=== PATIENT | female | born 1955 | race Hispanic/Latino ===

== ENCOUNTER 2024-07-03 09:07 | Observation (INO) | payer MEDICARE, OTHER ==
[2024-07-03] VITALS (9 sets, daily range): BP systolic 141–187; BP diastolic 51–64; PULSE 52–69; RESP 16–18; TEMP 97.5–98.7; O2SAT 98–100
[~2024-07-03] VITALS: Ht 152.4 cm; Wt 59.0 kg
[2024-07-03 10:27] LABS: BASOPHILS # (AUTO) 0.1 (0.0-0.1); BASOPHILS % 1.2 % (0.0-1.0); EOSINOPHILS # (AUTO) 0.1 (0.0-0.4); EOSINOPHILS % 1.2 % (0.0-6.0); LYMPHOCYTES # (AUTO) 1.1 (1.0-3.2); LYMPHOCYTES % 16.8 % (18.0-39.1); MEAN CORPUSCULAR HEMOGLOBIN 33.9 pg (28-32); MEAN CORPUSCULAR VOLUME 109.5 fL (81-99); MONOCYTES # (AUTO) 0.5 (0.2-0.8); MONOCYTES % 7.4 % (4.4-11.3); NEUTROPHILS # (AUTO) 4.8 (2.1-6.9); NEUTROPHILS % 72.3 % (38.7-80.0); RED BLOOD COUNT 1.68 x10e6/uL (3.6-5.1); RED CELL DISTRIBUTION WIDTH 17.4 % (11.7-14.4); WHITE BLOOD COUNT 6.62 x10e3/uL (4.8-10.8)
[2024-07-03 10:39] LABS: ANION GAP 18.5 mmol/L (8-16); CALCIUM 8.5 mg/dL (8.4-10.2); CREATININE, SERUM 6.86 mg/dL (0.57-1.11); HEMOGLOBIN 5.7 g/dL (12.0-16.0); POTASSIUM 3.5 mmol/L (3.5-5.1)
[2024-07-03 10:40] LABS: HEMATOCRIT 18.4 % (34.2-44.1)
[2024-07-03 10:41] LABS: PLATELET COUNT 246 x10e3/uL (140-360)
[2024-07-03] MEDS: SODIUM CHLORIDE 0.9% 250ML 250 ML IV ONE (16:49)
[2024-07-03] MEDS ORDERED: ALBUMIN 25% 12.5GM 0.25 GM/ML BTL IV PRN (18:00)
[2024-07-03] MEDS ORDERED: SODIUM CHLORIDE 0.9% 1000ML 2,000 ML IV PRN (18:00)
[2024-07-03] MEDS ORDERED: LOSARTAN POTASS25 MG PO (18:46)
[2024-07-03] MEDS ORDERED: ATORVASTATIN CA40 MG PO (18:46)
[2024-07-03] MEDS ORDERED: CARVEDILOL25 MG PO (18:46)
[2024-07-03] MEDS ORDERED: ASPIRIN81 MG (18:46)
[2024-07-03] MEDS ORDERED: CALCITRIOL0.25 MCG PO (18:46)
[2024-07-03] MEDS ORDERED: ALLOPURINOL100 MG PO (18:46)
[2024-07-03] MEDS ORDERED: BRILINTA90 MG PO (18:46)
[2024-07-03] MEDS ORDERED: SEVELAMER CARB800 MG PO (18:49)
[2024-07-03] MEDS ORDERED: OMEPRAZOLE40 MG PO (18:49)
[2024-07-03] MEDS: SEVELAMER CARBONATE 800 MG TAB PO SCH (20:38)
[2024-07-03] MEDS: HEPARIN SOD (PORCINE) 5,000 UNIT/ML VIAL IV ONE (20:39)
[2024-07-03] MEDS: HEPARIN SOD (PORCINE) 1000 UNIT/ML SDV IV ONE (20:39)
[2024-07-03] MEDS: ATORVASTATIN 40 MG TAB PO SCH (20:39)
[2024-07-04 00:41] VITALS: BP 143/61; PULSE 63; RESP 16; TEMP 99.3; O2SAT 100
[2024-07-04 01:47] LABS: BASOPHILS # (AUTO) 0.1 (0.0-0.1); BASOPHILS % 1.6 % (0.0-1.0); EOSINOPHILS # (AUTO) 0.1 (0.0-0.4); EOSINOPHILS % 1.8 % (0.0-6.0); HEMATOCRIT 27.9 % (34.2-44.1); HEMOGLOBIN 8.7 g/dL (12.0-16.0); LYMPHOCYTES # (AUTO) 1.3 (1.0-3.2); LYMPHOCYTES % 24.2 % (18.0-39.1); MEAN CORPUSCULAR HEMOGLOBIN 31.5 pg (28-32); MEAN CORPUSCULAR HGB CONC 31.2 g/dL (31-35); MEAN CORPUSCULAR VOLUME 101.1 fL (81-99); MONOCYTES # (AUTO) 0.6 (0.2-0.8); MONOCYTES % 9.9 % (4.4-11.3); NEUTROPHILS # (AUTO) 3.4 (2.1-6.9); NEUTROPHILS % 62.3 % (38.7-80.0); PLATELET COUNT 177 x10e3/uL (140-360); RED BLOOD COUNT 2.76 x10e6/uL (3.6-5.1); RED CELL DISTRIBUTION WIDTH 19.8 % (11.7-14.4); WHITE BLOOD COUNT 5.53 x10e3/uL (4.8-10.8)
[2024-07-04 04:43] VITALS: BP 174/61; PULSE 60; RESP 18; TEMP 97.7; O2SAT 100
[2024-07-04 05:29] LABS: BASOPHILS # (AUTO) 0.1 (0.0-0.1); BASOPHILS % 1.4 % (0.0-1.0); EOSINOPHILS # (AUTO) 0.1 (0.0-0.4); EOSINOPHILS % 1.6 % (0.0-6.0); HEMATOCRIT 25.8 % (34.2-44.1); HEMOGLOBIN 8.5 g/dL (12.0-16.0); LYMPHOCYTES # (AUTO) 1.1 (1.0-3.2); LYMPHOCYTES % 22.6 % (18.0-39.1); MEAN CORPUSCULAR HEMOGLOBIN 31.6 pg (28-32); MEAN CORPUSCULAR HGB CONC 32.9 g/dL (31-35); MEAN CORPUSCULAR VOLUME 95.9 fL (81-99); MONOCYTES # (AUTO) 0.5 (0.2-0.8); MONOCYTES % 9.9 % (4.4-11.3); NEUTROPHILS # (AUTO) 3.2 (2.1-6.9); NEUTROPHILS % 64.1 % (38.7-80.0); PLATELET COUNT 181 x10e3/uL (140-360); RED BLOOD COUNT 2.69 x10e6/uL (3.6-5.1); RED CELL DISTRIBUTION WIDTH 20.2 % (11.7-14.4); WHITE BLOOD COUNT 4.95 x10e3/uL (4.8-10.8)
[2024-07-04] MEDS: HYDRALAZINE HCL 20 MG/ML VIAL IV ONE (05:51)
[2024-07-04 06:04] LABS: ANION GAP 15.3 mmol/L (8-16); CALCIUM 8.4 mg/dL (8.4-10.2); CREATININE, SERUM 3.79 mg/dL (0.57-1.11)
[2024-07-04 06:11] LABS: POTASSIUM 3.3 mmol/L (3.5-5.1)
[2024-07-04 07:50] VITALS: PULSE 76; RESP 18; O2SAT 97
[2024-07-04 08:00] VITALS: BP 157/56; PULSE 67; RESP 18; TEMP 97.8; O2SAT 99
[2024-07-04] MEDS ORDERED: TICAGRELOR 90 MG TABLET PO SCH ×2 (09:00)
[2024-07-04] MEDS: CALCITRIOL 0.25 MCG CAP PO SCH (09:58)
[2024-07-04] MEDS: ASPIRIN 81 MG CHEW TAB PO SCH (09:58)
[2024-07-04] MEDS: PANTOPRAZOLE SOD 40 MG TABEC PO SCH (09:59)
[2024-07-04] MEDS: LOSARTAN POTASSIUM 25 MG TAB PO SCH (10:00)
[2024-07-04 10:01] VITALS: BP 157/56; PULSE 67
[2024-07-04] MEDS: ALLOPURINOL 100 MG TAB PO SCH (10:01)
[2024-07-04] MEDS: CARVEDILOL 12.5 MG TAB PO SCH (10:01)
== END 2024-07-04 11:29 | disposition home or self-care (01) ==
LOC: ER 09:18 → ERHOLD 09:52 → MED/SURG2 14:40
PROVIDERS: ADMIT Internal Medicine; ATTEND Internal Medicine
DX: D64.9 Anemia, unspecified (principal); I25.10 Atherosclerotic heart disease of native coronary artery without angina pectoris; Z95.5 Presence of coronary angioplasty implant and graft; E11.22 Type 2 diabetes mellitus with diabetic chronic kidney disease; I12.0 Hypertensive chronic kidney disease with stage 5 chronic kidney disease or end stage renal disease; N18.6 End stage renal disease; Z99.2 Dependence on renal dialysis; N25.81 Secondary hyperparathyroidism of renal origin; E78.5 Hyperlipidemia, unspecified; K21.9 Gastro-esophageal reflux disease without esophagitis; M10.9 Gout, unspecified; Z79.82 Long term (current) use of aspirin; Z79.899 Other long term (current) drug therapy; Z83.3 Family history of diabetes mellitus
CPT/HCPCS: 36430; G0257; 36415; 80048; 85025; 86850; 86900; 86920; 94799; 99284; G0378; J0360; J1644; J7030; J7050; P9016